=== PATIENT | female | born 1990 | race African-American/Black ===

== ENCOUNTER 2017-04-03 21:36 | Emergency (ER) | payer SELFPAY ==
[2017-04-03 21:59] LABS: Bilirubin Negative (Negative); Blood, Urine Negative (Negative); Glucose, Urine (Dipstick) Negative (Negative); Ketone, Urine Negative (Negative); Nitrite Negative (Negative); Protein, Urine (Dipstick) Negative (Neg-Trace); Urobilinogen 0.2 mg/dL (0.2-1.0)
[2017-04-03 22:00] LABS: Bacteria/HPF None Seen HPF (None Seen); Hyaline Casts/LPF 0-3 HYALINE CAST LPF (0-3 Hyaline); Squamous Epithelial 0-3 HPF (0-3)
[2017-04-03 22:12] LABS: #Basophils 0.1 thou/uL (0.0-0.2); #Eosinphils 0.2 thou/uL (0.0-0.7); #Lymphocytes 3.8 thou/uL (1.20-3.40); #Monocytes 0.8 thou/uL (0.11-0.59); #Neutrophils 5.9 thou/uL (1.40-6.50); %Basophils 0.8 % (0.0-1.0); %Eosinophils 1.7 % (0.0-10.0); %Monocytes 7.5 % (0.0-10.0); Hematocrit 39.7 % (36.0-47.0); Mean Platelet Volume 6.9 fL (7.4-10.4); Red Blood Cell (RBC) Count 4.72 mill/uL (4.20-5.40); White Blood Cell (WBC) Count 10.8 thou/uL (4.8-10.8)
[2017-04-03 22:32] LABS: ALT (SGPT) 8 U/L (8-55); AST (SGOT) 14 U/L (5-34); Alkaline Phosphatase 58 U/L (40-150); Anion Gap 11 mmol/L (10-20); BUN (Urea Nitrogen) 12 mg/dL (7.0-18.7); Bilirubin, Total 0.2 mg/dL (0.2-1.2); Calc. Creatinine Clearance 0 mL/min (70-130); Calcium 9.6 mg/dL (7.8-10.44); Carbon Dioxide 26 mmol/L (22-29); Chloride 104 mmol/L (98-107); Estimated GFR-MDRD Greater than 90; Globulin 3.8 g/dL (2.4-3.5); Lipase 38 U/L (8-78); Protein, Total 8.1 g/dL (6.0-8.3)
[2017-04-04] MEDS ORDERED: Ibuprofen 800 MG TAB ONE (01:01)
[2017-04-04] MEDS ORDERED: Magnesium Citrate 300 ML BOT ONE (01:40)
--- NOTE | 2017-04-04 07:56 | RAD ---
CHEST 1 VIEW ABDOMEN 2 VIEWS: Date: 04/04/17 HISTORY: 27-year-old female with left lower quadrant pain and constipation, with nausea but no vomiting. FINDINGS: No acute intrathoracic disease. There is some gas and fecal material in the colon. No evidence for l arge or small bowel obstruction. No overt calculus. No free air. IMPRESSION: Unremarkable chest 1 view and abdomen 2 views. POS: [facility]
== END 2017-04-04 01:43 | disposition home or self-care (01) ==
LOC: ERS 21:36
DX: N30.90 Cystitis, unspecified without hematuria (principal); K59.00 Constipation, unspecified
CPT/HCPCS: 36415; 74022; 80053; 81003; 81015; 81025; 83690; 85025